=== PATIENT | female | born 1995 | race Caucasian/White ===

== ENCOUNTER 2016-09-06 04:53 | Emergency (ER) | payer BC, OTHER ==
--- NOTE | 2016-09-06 05:07 | PDOC ---
History of Present Illness - General Stated Complaint: BACK PAIN Time Seen by Provider: 09/06/16 05:04 History Source: Patient Exam Limitations: No Limitations - History of Present Illness Initial Comments: 09/06/16 05:15 21-year-old female presents to the emergency department with her boyfriend complaining of mid to lower muscular back pain 2 years. Patient states after getting an epidural 2 years ago for her normal spontaneous vaginal delivery, she's been experiencing 7/10 dull nonradiating intermittent muscular back pains without bladder or bowel dysfunction, extremity numbness or tingling sensation, abdominal pains, chest pain, shortness of breath, flank pains or urinary symptoms. Patient denies any injuries. Pain is alleviated minimally with Motrin and exacerbated with movement.. Occurred: reports: other (x2 years) Past History - Past Medical History Allergies/Adverse Reactions: Allergies Allergy/AdvReac Type Severity Reaction Status Date / Time No Known Allergies Allergy Verified 09/06/16 05:17 Home Medications: Ambulatory Orders NK [No Known Home Medication] 09/06/16 - Psycho/Social/Smoking Cessation Hx Suicidal Ideation: No Smoking History: Never smoked Trauma Specific PMHX - Complaint Specific PMHX Back Injury: No Neck Injury: No Review of Systems - Review of Systems Able to Perform ROS?: Yes Comments:: 09/06/16 05:17 CONSTITUTIONAL: Absent: fever, chills, diaphoresis, generalized weakness, malaise, loss of appetite HEENT: Absent: rhinorrhea, nasal congestion, throat pain, throat swelling, difficulty swallowing, mouth swelling, ear pain, eye pain, visual Changes CARDIOVASCULAR: Absent: chest pain, loss of consciousness, palpitations, irregular heart rate, peripheral edema RESPIRATORY: Absent: cough, shortness of breath, dyspnea with exertion, orthopnea, wheezing, stridor, hemoptysis GASTROINTESTINAL: Absent: abdominal pain, abdominal distension, nausea, vomiting, diarrhea, constipation, melena, hematochezia GENITOURINARY: Absent: dysuria, frequency, urgency, hesitancy, hematuria, flank pain, genital pain MUSCULOSKELETAL: mid/lower left and right sided back pain; neg spinal pain Absent: myalgia, arthralgia, joint swelling SKIN: Absent: rash, itching, pallor HEMATOLOGIC/IMMUNOLOGIC: Absent: easy bleeding, easy bruising, lymphadenopathy, frequent infections ENDOCRINE: Absent: unexplained weight gain, unexplained weight loss, heat intolerance, cold intolerance NEUROLOGIC: Absent: headache, focal weakness or paresthesias, dizziness, unsteady gait, seizure, mental status changes, bladder or bowel incontinence PSYCHIATRIC: Absent: anxiety, depression, suicidal or homicidal ideation, hallucinations. Is the patient limited Sinhala proficient: No *Physical Exam - Physical Exam Comments: 09/06/16 05:17 GENERAL: Well developed, well nourished. Awake and alert. No acute distress. HEENT: Normocephalic, atraumatic. PERRLA, EOMI. No conjunctival pallor. Sclera are non- icteric. Moist mucous membranes. Oropharynx is clear. NECK: Supple. Full ROM. No JVD. Carotid pulses 2+ and symmetric, without bruits. No thyromegaly. No lymphadenopathy. CARDIOVASCULAR: Regular rate and rhythm. No murmurs, rubs, or gallops. Distal pulses are 2+ and symmetric. PULMONARY: No evidence of respiratory distress. Lungs clear to auscultation bilaterally. No wheezing, rales or rhonchi. ABDOMINAL: Soft. Non-tender. Non-distended. No rebound or guarding. No organomegaly. Normoactive bowel sounds. MUSCULOSKELETAL Normal range of motion at all joints. No bony deformities or tenderness. No CVA tenderness. EXTREMITIES: No cyanosis. No clubbing. No edema. No calf tenderness. SKIN: Warm and dry. Normal capillary refill. No rashes. No jaundice. NEUROLOGICAL: Alert, awake, appropriate. Cranial nerves 2-12 intact. No deficits to light touch and temperature in face, upper extremities and lower extremities. No motor deficits in the in face, upper extremities and lower extremities. Normoreflexic in the upper and lower extremities. Normal speech. Toes are down- going bilaterally. Gait is normal without ataxia. PSYCHIATRIC: Cooperative. Good eye contact. Appropriate mood and affect. Toes/heel/tandem walk intact, deep knee bend without difficulties *DC/Admit/Observation/Transfer Diagnosis at time of Disposition: Chronic back pain Qualifiers: Back pain location: thoracic back pain Back pain laterality: bilateral Qualified Code(s): M54.6 - Pain in thoracic spine - Discharge Dispostion Disposition: HOME Condition at time of disposition: Stable Admit: No - Referrals Referrals: STAFF,NOT ON [Primary Care Provider] - South Mayen MD [Staff Physician] - - Patient Instructions Printed Discharge Instructions: DI for Thoracic Back Pain, DI for Low Back Pain Additional Instructions: Follow-up with neurology as listed on your discharge. Take the Flexeril for severe pain Tylenol alternating with Motrin for mild pain Avoid heavy lifting Return back to the emergency department for severe/persistent or worsening discomfort, bladder or bowel dysfunction, extremity numbness or tingling sensation.
[2016-09-06 05:19] VITALS: BP 119/71; PULSE 84; TEMP 97.7; BMI 23.8
--- NOTE | 2016-09-06 05:19 | PDOC ---
[id number]/Observation/Transfer Diagnosis at time of Disposition: Chronic back pain - Discharge Dispostion Disposition: HOME Condition at time of disposition: Stable - Prescriptions Prescriptions: Cyclobenzaprine HCl [Flexeril 10 mg] 10 mg PO BID PRN #20 tablet PRN Reason: Back Pain - Referrals Referrals: South Mayen MD [Staff Physician] - STAFF,NOT ON [Primary Care Provider] - - Patient Instructions Printed Discharge Instructions: DI for Low Back Pain, DI for Thoracic Back Pain Additional Instructions: Follow-up with neurology as listed on your discharge. Take the Flexeril for severe pain Tylenol alternating with Motrin for mild pain Avoid heavy lifting Return back to the emergency department for severe/persistent or worsening discomfort, bladder or bowel dysfunction, extremity numbness or tingling sensation.
[2016-09-06] MEDS ORDERED: CYCLOBENZAPRINE HCL 10 MG TABLET (FP) PO ONE (05:25)
[2016-09-06] MEDS ORDERED: KETOROLAC TROMETHAMINE 60 MG/2 ML VIAL IM ONE (05:25)
[2016-09-06] MEDS ORDERED: KETOROLAC TROMETHAMINE 60 MG/2 ML VIAL ONE (05:33)
[2016-09-06] MEDS ORDERED: CYCLOBENZAPRINE HCL 10 MG TABLET (FP) ONE (05:33)
== END 2016-09-06 06:41 | disposition home or self-care (01) ==
LOC: JER 04:53
PROC: 3E0233Z Introduction of Anti-inflammatory into Muscle, Percutaneous Approach (ICD-10-PCS; principal; 2016-09-06)
DX: M54.6 Pain in thoracic spine (principal); G89.29 Other chronic pain
CPT/HCPCS: 72070-TC; 72100-TC; 84703; 99282-25

== ENCOUNTER 2016-11-27 02:18 | Emergency (ER) | payer OTHER ==
[2016-11-27] MEDS ORDERED: KETOROLAC TROMETHAMINE 60 MG/2 ML VIAL IM ONE (02:37)
--- NOTE | 2016-11-27 02:41 | PDOC ---
History of Present Illness - General History Source: Patient, Old Records Exam Limitations: No Limitations <Deirdre Valdez - Last Filed: 11/27/16 02:37> - General History Source: Patient Exam Limitations: No Limitations - History of Present Illness Initial Comments: 11/27/16 02:43 21 year old female with no PMHx who presents to the ED with low back pain. Patient reports the pain is constant and worsening for a year. She came to the ED a few months ago for the same pain and was given muscle relaxants. She states that she cannot take them because they make her drowsy and she needs to take care of her daughter. She reports taking ibuprofen with no relief. SHe went to a back specialist a few months ago and was told she needed an MRI but her insurance denied it. She denies abdominal pain, nausea, vomiting, diarrhea. She denies urinary complaints. She denies numbness, tingling, weakness. <Luz Maria Rodriguez - Last Filed: 11/27/16 02:43> - General Stated Complaint: LOWER BACK PAIN Time Seen by Provider: 11/27/16 02:28 Past History - Psycho/Social/Smoking Cessation Hx Suicidal Ideation: No Smoking History: Never smoked Hx Alcohol Use: No Drug/Substance Use Hx: No Substance Use Type: None <Lily Valdezfany - Last Filed: 11/27/16 02:37> <Luz Maria Rodriguez - Last Filed: 11/27/16 02:43> - Past Medical History Allergies/Adverse Reactions: Allergies Allergy/AdvReac Type Severity Reaction Status Date / Time No Known Allergies Allergy Verified 09/06/16 05:17 Home Medications: Ambulatory Orders Cyclobenzaprine HCl [Flexeril 10 mg] 10 mg PO BID PRN #20 tablet 09/06/16 Review of Systems - Review of Systems Able to Perform ROS?: Yes Comments:: 11/27/16 02:43 GENERAL/CONSTITUTIONAL: No fever or chills. No weakness. HEAD, EYES, EARS, NOSE AND THROAT: No change in vision. No ear pain or discharge. No sore throat. CARDIOVASCULAR: No chest pain or shortness of breath. RESPIRATORY: No cough, wheezing, or hemoptysis. GASTROINTESTINAL: No nausea, vomiting, diarrhea or constipation. GENITOURINARY: No dysuria, frequency, or change in urination. MUSCULOSKELETAL: (+) low back pain. No joint or muscle swelling or pain. No neck pain. SKIN: No rash NEUROLOGIC: No headache, vertigo, loss of consciousness, or change in strength/ sensation. ENDOCRINE: No increased thirst. No abnormal weight change. HEMATOLOGIC/LYMPHATIC: No anemia, easy bleeding, or history of blood clots. ALLERGIC/IMMUNOLOGIC: No hives or skin allergy. <Luz Maria Rodriguez - Last Filed: 11/27/16 02:43> *Physical Exam - Physical Exam Comments: 11/27/16 02:43 GENERAL: Awake, alert, and fully oriented, in no acute distress HEAD: No signs of trauma EYES: PERRLA, EOMI, sclera anicteric, conjunctiva clear ENT: Auricles normal inspection, hearing grossly normal, nares patent, oropharynx clear without exudates. Moist mucosa NECK: Normal ROM, supple, no lymphadenopathy, JVD, or masses LUNGS: Breath sounds equal, clear to auscultation bilaterally. No wheezes, and no crackles HEART: Regular rate and rhythm, normal S1 and S2, no murmurs, rubs or gallops ABDOMEN: Soft, nontender, normoactive bowel sounds. No guarding, no rebound. No masses BACK: No spinal tenderness, no paraspinal tenderness, no CVA tenderness EXTREMITIES: Normal range of motion, no edema. No clubbing or cyanosis. No cords , erythema, or tenderness NEUROLOGICAL: Cranial nerves II through XII grossly intact. Normal speech, normal gait SKIN: Warm, Dry, normal turgor, no rashes or lesions noted. <Luz Maria Rodriguez - Last Filed: 11/27/16 02:43> Medical Decision Making - Medical Decision Making 11/27/16 02:37 21-year-old female with history of back pain times one year presents the emergency department with the same back pain that she has had for the past year but says that she does not want to take muscle relaxers as it makes her drowsy. Plan: 1. Toradol IM 2. I have advised the patient to follow-up with her back specialist who she saw several months ago 3. Return to the emergency department if symptoms persist, worsen, or new symptoms arise. <Deirdre Valdez - Last Filed: 11/27/16 02:37> *DC/Admit/Observation/Transfer - Discharge Dispostion Admit: No - Attestations Physician Attestion: 11/27/16 02:38 I, Dr. Deirdre Valdez, attest that the scribes documentation that appears above has been prepared under my direction and personally reviewed by me in its entirety. I confirmed that the note above accurately reflects all work, treatment, procedures, and medical decision-making performed by me. <Deirdre Valdez - Last Filed: 11/27/16 02:37> - Attestations Scribe Attestion: 11/27/16 02:43 Documentation prepared by Luz Maria Rodriguez, acting as medical facilities section director for Deirdre Valdez MD. <Luz Maria Rodriguez - Last Filed: 11/27/16 02:43> Diagnosis at time of Disposition: Chronic back pain - Discharge Dispostion Disposition: HOME Condition at time of disposition: Stable - Patient Instructions Printed Discharge Instructions: DI for Low Back Pain Additional Instructions: You may continue to take ibuprofen 800mg every 6-8 hours as needed for pain. Please follow-up with your back specialist as soon as possible. If your muscle relaxer causes you to be excessively drowsy, you may cut the tablet in half and take 1/2 of the dose. Return to the ED if your symptoms persist, worsen or new symptoms arise.
[2016-11-27] MEDS ORDERED: KETOROLAC TROMETHAMINE 60 MG/2 ML VIAL ONE (02:58)
[2016-11-27 03:05] VITALS: BP 110/68; PULSE 68; TEMP 98.7; BMI 22.1
== END 2016-11-27 03:09 | disposition home or self-care (01) ==
LOC: JER 02:18
PROC: 3E0233Z Introduction of Anti-inflammatory into Muscle, Percutaneous Approach (ICD-10-PCS; principal; 2016-11-27)
DX: M54.5 Low back pain (principal); G89.29 Other chronic pain
CPT/HCPCS: 96372; 99281-25

== ENCOUNTER 2016-12-24 14:49 | Emergency (ER) | payer OTHER ==
[2016-12-24 15:04] VITALS: BP 109/69; PULSE 71; TEMP 98; BMI 24.1
--- NOTE | 2016-12-24 17:08 | PDOC ---
History of Present Illness - General Chief Complaint: Injury Stated Complaint: INJURY TO ANKLE Time Seen by Provider: 12/24/16 17:07 History Source: Patient Exam Limitations: No Limitations - History of Present Illness Initial Comments: 12/24/16 17:44 COMING DOWN STAIRS and missed last step causing inversion injury to her left ankle. States it occurred approximately 4 hours ago, has used ice but pain has not subsided. Occurred: reports: just prior to arrival, this afternoon. denies: other Severity: reports: mild Pain Location: reports: lower extremity (LEFT ) Method of Injury: Yes: fall Modifying Factors: improves with: cold therapy Associated Symptoms (Fall): denies symptoms Past History - Travel Traveled outside of the country in the last 30 days: No Close contact w/someone who was outside of country & ill: No - Past Medical History Allergies/Adverse Reactions: Allergies Allergy/AdvReac Type Severity Reaction Status Date / Time No Known Allergies Allergy Verified 12/24/16 15:04 Home Medications: Ambulatory Orders NK [No Known Home Medication] 12/24/16 - Psycho/Social/Smoking Cessation Hx Suicidal Ideation: No Smoking History: Never smoked Have you smoked in the past 12 months: No Number of Cigarettes Smoked Daily: 0 Information on smoking cessation initiated: No Hx Alcohol Use: No Drug/Substance Use Hx: No Substance Use Type: None Trauma Specific PMHX - Complaint Specific PMHX Back Injury: No Neck Injury: No Review of Systems - Review of Systems Able to Perform ROS?: Yes Is the patient limited South Korean proficient: Yes Constitutional: Yes: See HPI. No: Symptoms Reported Respiratory: No: Symptoms reported Musculoskeletal: Yes: Symptoms Reported, See HPI, Joint Pain, Joint Swelling All Other Systems: Reviewed and Negative *Physical Exam - Vital Signs Last Vital Signs Temp Pulse Resp BP Pulse Ox 98 F 71 18 109/69 100 12/24/16 15:02 12/24/16 15:02 12/24/16 15:02 12/24/16 15:02 12/24/16 15:02 - Physical Exam General Appearance: Yes: Nourished, Appropriately Dressed, Mild Distress HEENT: positive: BRAULIO, Normal ENT Inspection, TMs Normal, Pharynx Normal Neck: negative: Tender Musculoskeletal: positive: Normal Inspection Extremity: positive: Normal Capillary Refill, Normal Inspection, Other. negative: Normal Range of Motion (needed range of motion secondary to tenderness to the lateral malleolus and along the lateral aspect of left foot. Has no point tenderness to navicular fifth metatarsal or medial malleolus, negative squeeze test. Neurovascular intact to foot) Integumentary: positive: Pale, Swelling ED Treatment Course - RADIOLOGY Radiology Studies Ordered: Category Date Time Status ANKLE-LEFT [RAD] Stat Radiology 12/24/16 17:08 Ordered Progress Note - Progress Note Progress Note: Negative for fractures or dislocations, will treat for sprain with Manohar, Aircast and crutches. *DC/Admit/Observation/Transfer Diagnosis at time of Disposition: Left ankle sprain Qualifiers: Encounter type: initial encounter Involved ligament of ankle: unspecified ligament Qualified Code(s): S93.402A - Sprain of unspecified ligament of left ankle, initial encounter - Discharge Dispostion Disposition: HOME Condition at time of disposition: Stable Admit: No - Referrals Referrals: STAFF,NOT ON [Primary Care Provider] - South White MD [Staff Physician] - - Patient Instructions Printed Discharge Instructions: DI for Ankle Sprain Additional Instructions: Rest, ice to area on and off for 15 minutes 4-6 times a day Avoid heavy lifting or exercise until pain and swelling is resolved or until further directed Keep area highly elevated to reduce swelling Use splints/Manohar wrap as directed Followup with orthopedist in one to 2 days if not improving, if significantly improved may wait one week for followup with orthopedist May use ibuprofen 2-200 mg tablets every 6 hours as needed for pain
== END 2016-12-24 17:52 | disposition home or self-care (01) ==
LOC: JERFT 14:49
DX: S93.402A Sprain of unspecified ligament of left ankle, initial encounter (principal); W10.8XXA Fall (on) (from) other stairs and steps, initial encounter; Y93.89 Activity, other specified; Y92.89 Other specified places as the place of occurrence of the external cause
CPT/HCPCS: 73610-TC-LT; 99282-25

== ENCOUNTER 2017-08-02 07:51 | Day surgery (SDC) | payer OTHER ==
[2017-07-31 17:23] VITALS: BMI 24.5
--- NOTE | 2017-08-02 09:56 | HP ---
History & Physical Update - History History: No Change - Physical Physical: No Change - Assessment Assessment: No Change - Plan Plan: No Change (Consented for laparascopic cholecystectomy, possible open.)
[2017-08-02] MEDS ORDERED: ceFAZolin SODIUM 1 GM VIAL IVPB ONE (10:20)
[2017-08-02] MEDS ORDERED: BUPIVACAINE HCL/PF 0.5% (5MG/ML) 10 ML VIAL IJ ONE ×2 (11:16)
--- NOTE | 2017-08-02 11:38 | OP ---
Operative Note - Note: Operative Date: 08/02/17 Pre-Operative Diagnosis: Cholelithisis with chronic cholecystitis. Operation: Laparoscopic cholecystectomy , primary repair of umbilical hernia. Findings: Cholelithiasis , cholecystitis, umbilical hernia. Post-Operative Diagnosis: Other (Cholelithiasis, umbilical hernia.) Surgeon: Pina Fields Heavy Duty Custodian: Gia Shipman Anesthesia: General Specimens Removed: Gallbladder Estimated Blood Loss (mls): 5 Operative Report Dictated: Yes
[2017-08-02] MEDS ORDERED: ONDANSETRON 4 MG/2 ML VIAL IVPUSH PRN (12:31)
[2017-08-02] MEDS ORDERED: oxyCODONE HCL 5 MG TABLET PO PRN (12:31)
--- NOTE | 2017-08-02 12:39 | SURG ---
Surgery Information Consultant Note Information Consultant: Gia Shipman PA-C Date of Service: 08/02/17 Diagnosis: cholecystitis, cholelithiasis, umbilical hernia Procedure: laparoscopic cholecystectomy with primary repair of umbilical hernia I was present for the entirety of the operative procedure. For further detail, please refer to operative report. Visit type - Case Type Case Type: Scheduled Admission - Emergency Emergency Visit: No - New patient This patient is new to me today: Yes Date on this admission: 08/02/17
[2017-08-02] MEDS ORDERED: LACTATED RINGERS SOLUTION 1,000 ML IV SCH (12:45)
--- NOTE | 2017-08-02 12:56 | OP ---
DATE OF OPERATION: 08/02/2017 PREOPERATIVE DIAGNOSIS: Cholelithiasis with chronic cholecystitis. POSTOPERATIVE DIAGNOSES: 1. Cholelithiasis with chronic cholecystitis. 2. Umbilical hernia. OPERATIVE PROCEDURE: 1. Laparoscopic cholecystectomy. 2. Primary repair of umbilical hernia. SURGEON: Eran Fields MD BRICK CHIMNEY BUILDER: HELEN Benjamin ANESTHESIA: General anesthesia. OPERATIVE DESCRIPTION: This 22-year-old woman was referred by Dr. Lino for abdominal pain. She was found to have a large stone in the gallbladder with chronic cholecystitis. Patient was brought in for a laparoscopic cholecystectomy. Consent was obtained. Risks, benefits and complications were discussed with the patient. General anesthesia was administered. The abdomen painted and draped. Timeout was called. An incision was made in the infraumbilical portion of the umbilicus. This was deepened down through the skin and subcutaneous tissue. Umbilical hernial defect was identified. This was then used to enter the abdominal cavity. The skin over the umbilical defect was raised above the defect, thus exposing the margins of the defect. This was then carefully stretched and the peritoneum was incised. Two stay sutures of 2-0 Vicryl were obtained on either side and a 10-mm laparoscopic trocar of the Mary type was introduced in the abdominal cavity through this defect. The abdomen was inflated with carbon dioxide at 6 L per minute with a maximum intraabdominal pressure of 15 mmHg. A 5-mm camera was then introduced through this port into the abdominal cavity. Two stay sutures of 2-0 Vicryl were obtained to anchor the 10-mm trocar to the abdominal wall. There were no lesions within the abdominal cavity. Under direct vision two 5-mm trocars were introduced through a small skin incision in the right upper quadrant of the abdomen. One was placed along the anterior axillary line 2 to 3 fingerbreadths below the costal margin. Another 5-mm trocar was inserted medial to it along the midclavicular line. Both these trocars were noted entering the abdominal cavity under direct vision with the camera. A third 5-mm trocar was then introduced in the midline in the subxiphoid area. A small skin incision was made in this location and the 5-mm trocar was introduced into the abdominal cavity to the right of the falciform ligament. All these trocars were noted entering the abdomen with the camera in the umbilical port. The gallbladder was then identified and a grasper was introduced through the lateral 5-mm port into the abdominal cavity. This grasper grasped the fundus of the gallbladder and retracted it cephalad and laterally. This exposed the infundibulum of the gallbladder. The infundibulum of the gallbladder was then grasped with another grasper through the medial 5-mm port. The infundibulum was then retracted inferiorly and laterally, thus exposing the cystic duct and the Calot triangle. With an Endoshears introduced through the subxiphoid port, the peritoneal reflection around the cystic duct and infundibulum was incised circumferentially. With sharp and blunt dissection the cystic duct was isolated circumferentially. The cystic artery was also brought into view. Once the cystic duct and cystic artery were isolated circumferentially, these were divided between Endoclips. These 5-mm Endoclips were introduced through the subxiphoid port. The cystic duct and cystic artery were then divided between clips. The peritoneal reflection on either side of the cystic duct was then incised for 2 to 3 mm from the liver edge using electrocautery as well as sharp and blunt dissection with the endoscissors. Gallbladder was then dissected all the way to the fundus of the gallbladder. Hemostasis was achieved using electrocautery. The dissection was clear and clean and the cholecystectomy was thus accomplished. The camera was then switched to the subxiphoid port. An EndoCatch was then introduced through the umbilical port. The gallbladder was placed in the EndoCatch and retrieved out of the abdominal cavity. There was a large stone within the gallbladder. The gallbladder fossa was then irrigated with normal saline through the subxiphoid port, the camera being switched back to the umbilical port. All fluid at this time was clear. There was no bleeding. The instruments were then withdrawn under direct vision. The umbilical defect was then approximated with interrupted and [id number] 2-0 Vicryl sutures. The umbilical hernia was thus repaired. Marcaine 0.5% was then injected into the wound. The skin was then approximated with buried interrupted 4-0 Biosyn sutures. Estimated blood loss was less than 5 mL. Sponge count and instrument count were correct. Dermabond was applied across the skin edges. Patient tolerated the procedure well, was extubated and sent to the recovery room in satisfactory and stable condition. Kassandra [id number] cc: Cathy Lino MD
[2017-08-02 13:51] VITALS: TEMP 99.3
[2017-08-02] MEDS ORDERED: oxyCODONE HCL 5 MG TABLET ONE (14:04)
[2017-08-02 15:53] VITALS: BP 114/63; PULSE 90
--- NOTE | 2017-08-06 14:40 | PATH ---
Surgical Pathology Report Patient Name: MARTIR MANZANARES [facility]. Rec. #: [id number] /Age/Gender: 1995 (Age: 22) / F Account: [id number] Location: [facility] SURGICAL Taken: 08/02/2017 Received: 08/02/2017 Reported: 08/06/2017 Physicians: Eran Fields M.D. Specimen(s) Received GALLBLADDER Clinical History Cholecystitis, cholelithiasis Final Diagnosis GALLBLADDER, LAPAROSCOPIC CHOLECYSTECTOMY: CHRONIC CHOLECYSTITIS AND CHOLELITHIASIS. Electronically Signed Marilin Sifuentes M.D. Gross Description Received in formalin, labeled "gallbladder," is a 7.0 x 2.3 x 2.0 cm. gallbladder with a 0.2 cm. in length portion of cystic duct attached. The outer surface is leung-lopez with a focal defect and varies from smooth to shaggy. The lumen contains green, tenacious bile as well as 2 yellow, bosselated choleliths averaging 1.5 cm in greatest dimension. The mucosa is green and velvety. The wall of the gallbladder averages 0.2 cm. in thickness. Retail Buyer sections are submitted in one cassette. 08/02/201708/02/2017
== END 2017-08-02 16:02 | disposition home or self-care (01) ==
LOC: JASU-SURG 07:51
PROVIDERS: ATTEND Specialist
PROC: 0FT44ZZ Resection of Gallbladder, Percutaneous Endoscopic Approach (ICD-10-PCS; 2017-08-02)
PROC: 0WQF0ZZ Repair Abdominal Wall, Open Approach (ICD-10-PCS; principal; 2017-08-02 11:00)
DX: K80.10 Calculus of gallbladder with chronic cholecystitis without obstruction (principal); K42.9 Umbilical hernia without obstruction or gangrene
CPT/HCPCS: 84703; 88304-TC; 94760

== ENCOUNTER 2019-02-13 18:49 | Emergency (ER) | payer OTHER ==
[2019-02-13 19:03] VITALS: BMI 25.7
--- NOTE | 2019-02-13 19:04 | PDOC ---
Rapid Medical Evaluation Chief Complaint: Lightheaded Time Seen by Provider: 02/13/19 19:03 Medical Evaluation: Allergies Allergy/AdvReac Type Severity Reaction Status Date / Time No Known Allergies Allergy Verified 02/13/19 19:03 Vital Signs Temp Pulse Resp BP Pulse Ox 98.7 F 79 16 127/68 99 02/13/19 18:59 10 18:59 02/13/19 18:59 02/13/19 18:59 02/13/19 18:59 02/13/19 19:03 I have performed a brief in-person evaluation of this patient. The patient presents with a chief complaint of: 4 days of bodyaches, lightheadedness, generalized malaise with one day of runny nose, stuffy nose, sore throat, fever The patient will proceed to the ED for further evaluation. Discharge Disposition - Diagnosis Viral syndrome - Referrals - Patient Instructions - Post Discharge Activity
--- NOTE | 2019-02-13 19:58 | PDOC ---
History of Present Illness - General Chief Complaint: Lightheaded Stated Complaint: SICK Time Seen by Provider: 02/13/19 19:03 Past History - Past Medical History Allergies/Adverse Reactions: Allergies Allergy/AdvReac Type Severity Reaction Status Date / Time No Known Allergies Allergy Verified 02/13/19 19:03 Home Medications: Ambulatory Orders Levonorgestrel-Ethin Estradiol [Lutera-28 Tablet] 1 each PO DAILY 07/31/17 Oxycodone HCl/Acetaminophen [Percocet 5-325 mg Tablet -] 1 tab PO Q6H PRN #20 tablet MDD 3 08/02/17 Anemia: No Asthma: No Cancer: No Cardiac Disorders: No CVA: No COPD: No CHF: No Dementia: No Diabetes: No GI Disorders: No Disorders: No HTN: No Hypercholesterolemia: No Liver Disease: No Seizures: No Thyroid Disease: No - Psycho Social/Smoking Cessation Hx Smoking History: Never smoked Have you smoked in the past 12 months: No Number of Cigarettes Smoked Daily: 0 Hx Alcohol Use: No Drug/Substance Use Hx: No Substance Use Type: None Hx Substance Use Treatment: No *Physical Exam - Vital Signs Last Vital Signs Temp Pulse Resp BP Pulse Ox 98.7 F 79 16 127/68 99 02/13/19 18:59 02/13/19 18:59 02/13/19 18:59 02/13/19 18:59 02/13/19 18:59 ED Treatment Course - LABORATORY CBC & Chemistry Diagram: 02/13/19 20:27 02/13/19 20:27 Discharge - Discharge Information Problems reviewed: Yes Clinical Impression/Diagnosis: Viral syndrome, Influenza B Condition: Stable Disposition: HOME - Admission No - Follow up/Referral Referrals: Alden Lino [Primary Care Provider] - - Patient Discharge Instructions Patient Printed Discharge Instructions: DI for Viral Syndrome Additional Instructions: You were seen in the ER for complaints of runny nose, body aches and fever. Your labwork was unremarkable. You should follow up with your Family Doctor. Take Motrin and Tylenol for pain and fever relief. Drink plenty of fluids. Return to the ED if you have worsening symptoms, nausea, vomiting or fever. - Post Discharge Activity
[2019-02-13] MEDS ORDERED: SODIUM CHLORIDE 1,000 ML IV SCH (20:00)
[2019-02-13 20:50] LABS: BASO % 0.7 % (0-2.0); EOS % 2.4 % (0-4.5); HEMATOCRIT 45.2 % (32.4-45.2); HEMOGLOBIN 15.1 GM/dL (10.7-15.3); LYMPH % 24.2 % (8-40); MCH 29.5 pg (25.7-33.7); MCHC 33.5 g/dl (32.0-36.0); MEAN CELL VOLUME 87.9 fl (80-96); MEAN PLT VOLUME 8.9 fl (7.5-11.1); MONO % 11.9 % (3.8-10.2); NEUT % 60.8 % (42.8-82.8); PLATELET COUNT 223 K/MM3 (134-434); RBC 5.14 M/mm3 (3.60-5.2); URINE APPEARANCE CLEAR; URINE BILIRUBIN NEGATIVE (NEGATIVE); URINE COLOR YELLOW; URINE GLUCOSE (UA) NEGATIVE (NEGATIVE); URINE KETONE NEGATIVE (NEGATIVE); URINE LEUK ESTERASE NEGATIVE (NEGATIVE); URINE NITRITE NEGATIVE (NEGATIVE); URINE PROTEIN NEGATIVE (NEGATIVE); WHITE BLOOD COUNT 5.9 K/mm3 (4.0-10.0)
--- NOTE | 2019-02-13 20:56 | PDOC ---
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 She has no PMHx. Pt has no other complaints. - Physicial Exam PE: 02/13/19 21:58 Normal exam. Pt is afebrile here. She has been taking motrin at home Last dose of motrin was Pt has not been eating well. She is not dehydrated appearing and HR is NSR Lungs clear Abd soft NT ND Neuro exam is normal - Medical Decision Making 02/13/19 23:50 Labs normal; Flu B is positive; pt will not be treated with tamiflu, as it has been going on for 4 days. Pt adivsed to take precautions when she is around family/friends/children/ elderly
[2019-02-13 21:17] LABS: ALBUMIN 4.1 g/dl (3.4-5.0); BILIRUBIN,TOTAL 0.2 mg/dL (0.2-1); BLOOD UREA NITROGEN 10.1 mg/dL (7-18); CALCIUM 9.2 mg/dL (8.5-10.1); CREATININE 0.9 mg/dL (0.55-1.3); POTASSIUM 4.2 mmol/L (3.5-5.1); TOT PROT 8.1 g/dl (6.4-8.2)
[2019-02-13 22:48] VITALS: BP 120/65; PULSE 75; TEMP 98.1
== END 2019-02-13 22:46 | disposition home or self-care (01) ==
LOC: JERFT 18:49
DX: J10.1 Influenza due to other identified influenza virus with other respiratory manifestations (principal); B34.9 Viral infection, unspecified
CPT/HCPCS: 36415; 80053; 81003; 84703; 85025; 87086; 87804; 99283-25; J7030

== ENCOUNTER 2019-12-20 17:32 | Emergency (ER) | payer OTHER ==
[2019-12-20 17:40] VITALS: TEMP 98.4; BMI 25.4
[2019-12-20 18:31] LABS: EPI CELLS 15 /uL (0-25.1); HYALINE CASTS 2 /uL (0-3.1); PH,URINE 5.5 (5.0-8.0); URINE APPEARANCE CLEAR; URINE BACTERIA 555 /uL (0-1359); URINE BILIRUBIN NEGATIVE (NEGATIVE); URINE COLOR YELLOW; URINE GLUCOSE (UA) NEGATIVE (NEGATIVE); URINE KETONE NEGATIVE (NEGATIVE); URINE LEUK ESTERASE 1+ (NEGATIVE); URINE NITRITE NEGATIVE (NEGATIVE); URINE PROTEIN NEGATIVE (NEGATIVE); URINE RBC 10 /uL (0-23.9); URINE WBC 39 /uL (0-25.8)
--- NOTE | 2019-12-20 18:34 | PDOC ---
History of Present Illness - General History Source: Patient Exam Limitations: No Limitations - History of Present Illness Initial Comments: 12/20/19 18:26 Patient is a 24-year-old female, LMP 10/13 who is 9 weeks complaining of pain to her right side last night. States the pain was sharp but as the night progressed to resolved and currently has no pain. She denies any vaginal bleeding pr any abnormal vaginal discharge. She has had OB care but no OB sono. She is here to check to see if everything is okay. Contrary to triage patient has no lightheadedness. She states that she gets nauseous all day and is a little bit lightheaded but has no symptoms currently. Denies denies fever, chills, dysuria. PMD: does not remember name OBS: Abrahamangela diamond PMHX: as above PSHX: hernia repair, cholecystectomy ALL: NKDA GENERAL/CONSTITUTIONAL: [No fever or chills. No weakness. No weight change.] HEAD, EYES, EARS, NOSE AND THROAT: [No change in vision. No ear pain or discharge. No sore throat.] CARDIOVASCULAR: [No chest pain or shortness of breath.] RESPIRATORY: [No cough, wheezing, or hemoptysis.] GASTROINTESTINAL: [No nausea, vomiting, diarrhea or constipation. No rectal bleeding.] GENITOURINARY: [No dysuria, frequency, or change in urination.] MUSCULOSKELETAL: [No joint or muscle swelling or pain. No neck or back pain.] SKIN AND BREASTS: [No rash or easy bruising.] NEUROLOGIC: [No headache, vertigo, loss of consciousness, or loss of sensation.] PSYCHIATRIC: [No depression or anxiety.] ENDOCRINE: [No increased thirst. No abnormal weight change.] HEMATOLOGIC/LYMPHATIC: [No anemia, easy bleeding, or history of blood clots.] ALLERGIC/IMMUNOLOGIC: [No hives or skin allergy. No latex allergy.] GENERAL: [The patient is awake, alert, and fully oriented, in no acute distress.] HEAD: [Normal with no signs of trauma.] EYES: [Pupils equal, round and reactive to light, extraocular movements intact, sclera anicteric, conjunctiva clear.] ENT: [Ears normal, nares patent, oropharynx clear without exudates. Moist mucous membranes.] NECK: [Normal range of motion, supple without lymphadenopathy, JVD, or masses.] LUNGS: [Breath sounds equal, clear to auscultation bilaterally. No wheezes, and no crackles.] HEART: [Regular rate and rhythm, normal S1 and S2 without murmur, rub.] ABDOMEN: [Soft, nontender, normoactive bowel sounds. No guarding, no rebound. No masses.] EXTREMITIES: [Normal range of motion, no edema. No clubbing or cyanosis. No cords, erythema, or tenderness.] NEUROLOGICAL: [Cranial nerves II through XII grossly intact. Normal speech, normal gait.] PSYCH: [Normal mood, normal affect.] SKIN: [Warm, Dry, normal turgor, no rashes or lesions noted.] <Lesly Cohen - Last Filed: 12/20/19 20:41> <Jerry Hayes - Last Filed: 12/20/19 23:16> - General Chief Complaint: Lightheaded Stated Complaint: 8WKS//DIZZINESS/NAUSEA Past History - Medical History Anemia: No Asthma: No Cancer: No Cardiac Disorders: No CVA: No COPD: No CHF: No Dementia: No Diabetes: No GI Disorders: No Disorders: No HTN: No Hypercholesterolemia: No Liver Disease: No Seizures: No Thyroid Disease: No - Surgical History Abdominal Surgery: Yes (hernia repair) Cholecystectomy: Yes - Reproductive History Is Patient Now?: Yes - Psycho-Social/Smoking History Smoking History: Never smoked Have you smoked in the past 12 months: No Number of Cigarettes Smoked Daily: 0 - Substance Abuse Hx (Audit-C & DAST Scrn) How often the patient has a drink containing alcohol: Never Score: In Men: 4 or > Positive; In Women: 3 or > Positive: 0 Screen Result (Pos requires Nsg. Audit-10AR): Negative <Lesly Cohen - Last Filed: 12/20/19 20:41> <Jerry Hayes - Last Filed: 12/20/19 23:16> - Medical History Allergies/Adverse Reactions: Allergies Allergy/AdvReac Type Severity Reaction Status Date / Time No Known Allergies Allergy Verified 12/20/19 17:40 Home Medications: Ambulatory Orders Levonorgestrel-Ethin Estradiol [Lutera-28 Tablet] 1 each PO DAILY 07/31/17 Oxycodone HCl/Acetaminophen [Percocet 5-325 mg Tablet -] 1 tab PO Q6H PRN #20 tablet MDD 3 08/02/17 Cephalexin [Keflex] 500 mg PO BID #10 capsule 12/20/19 *Physical Exam - Vital Signs Last Vital Signs Temp Pulse Resp BP Pulse Ox 98.4 F 80 18 113/69 98 12/20/19 17:36 12/20/19 17:36 12/20/19 17:36 12/20/19 17:36 12/20/19 17:36 <Lesly Cohen - Last Filed: 12/20/19 20:41> - Vital Signs Last Vital Signs Temp Pulse Resp BP Pulse Ox 98.4 F 72 16 111/70 100 12/20/19 17:36 12/20/19 20:30 12/20/19 20:30 12/20/19 20:30 12/20/19 20:30 <Jerry Hayes - Last Filed: 12/20/19 23:16> ED Treatment Course - ADDITIONAL ORDERS Additional order review: Laboratory Results 12/20/19 12/20/19 18:04 18:04 Urine Color Yellow Urine Appearance Clear Urine pH 5.5 Ur Specific [place] 1.032 Urine Protein Negative Urine Glucose (UA) Negative Urine Ketones Negative Urine Blood Negative Urine Nitrite Negative Urine Bilirubin Negative Urine Urobilinogen 1.0 Ur Leukocyte Esterase 1+ H Urine WBC (Auto) 39 Urine RBC (Auto) 10 Urine Casts (Auto) 2 U Epithel Cells (Auto) 15 Urine Bacteria (Auto) 555 Urine HCG, Qual Positive - Medications Given in the ED: ED Medications Discontinued Medications Generic Name Dose Route Start Last Admin Trade Name Freq PRN Reason Stop Dose Admin Cephalexin HCl 500 mg 12/20/19 20:33 12/20/19 20:42 Keflex - PO 12/20/19 20:34 500 mg ONCE ONE Administration <Jerry Hayes - Last Filed: 12/20/19 23:16> Medical Decision Making - Medical Decision Making 12/20/19 18:26 Patient is a 24-year-old female, LMP 6/17 who is 9 weeks complaining of pain to her right side last night. States the pain was sharp but as the night progressed to resolved and currently has no pain. She denies any vaginal bleeding pr any abnormal vaginal discharge. She has had OB care but no OB sono. She is here to check to see if everything is okay. Contrary to triage patient has no lightheadedness. She states that she gets nauseous all day and is a little bit lightheaded but has no symptoms currently. Denies denies fever, chills, dysuria. Bedside US done (+) IUP, FH 166 will send UA 12/20/19 20:23 Patient Full Name: GLENNA MCMAHAN Patient Accession No: [id number] Patient : 1995 Reason for Exam: r/o ectopic Referring Physician: Patient Name: MARTIR MANZANARES THIS IS A PRELIMINARY REPORT FROM IMAGING SPEECH/LANGUAGE THERAPIST DATE OF SERVICE: 2019-12-20 18:50:12 IMAGES: 28 EXAM: US OB less than 14 weeks HISTORY: Evaluate for ectopic . TECHNIQUE: Real-time imaging of the was performed with both transabdominal and transvaginal technique. Less than 14 weeks . COMPARISON: None available. FINDINGS: A single live intrauterine gestation is present, with gestational sac, pole, and yolk sac visible. There is positive cardiac activity at a rate of 166 bpm. No evidence of adnexal mass or free fluid. THIS DOCUMENT HAS BEEN ELECTRONICALLY SIGNED Az Lubin MD 12/20/2019 20:05 LÓPEZ Silva. Please call Imaging Budget Technician [phone] ([phone]) with questions. INTERPRETING RADIOLOGIST: Az Lubin MD Electronically Signed: Dec 20, 2019 08:05PM EDT 12/20/19 20:37 Results of the ultrasound was discussed with the patient. She has had no symptoms of abdominal pain dizziness since being in the emergency room. She is agreeable to discharge. I discussed the physical exam findings, ancillary test results and final diagnoses with the patient. I answered all of the patient's questions. The patient was satisfied with the care received and felt comfortable with the discharge plan and treatment plan. The Patient agrees to follow up with the primary care physician within 24-72 hours. <Lesly Cohen - Last Filed: 12/20/19 20:41> Discharge - Discharge Information Problems reviewed: Yes <Lesly Cohen - Last Filed: 08/23/20 20:41> <Jerry Hayes - Last Filed: 12/20/19 23:16> - Discharge Information Clinical Impression/Diagnosis: Abdominal pain affecting UTI (urinary tract infection) during Qualifiers: Trimester: first trimester Qualified Code(s): O23.41 - Unspecified infection of urinary tract in , first trimester Condition: Stable Disposition: HOME - Additional Discharge Information Prescriptions: Cephalexin [Keflex] 500 mg PO BID #10 capsule - Patient Discharge Instructions Patient Printed Discharge Instructions: DI for Urinary Tract Infection (UTI), DI for Abdominal Pain -- Early Additional Instructions: Your Discharge Instructions: You must call primary care physician within 24 hours to arrange follow-up. Return to the Emergency Department with any new, persistent or worsening symptoms, for fever, chills, SOB, dizziness or any other concerning changes that may occur. You must follow-up with your OB in 1 to 2 days.
[2019-12-20] MEDS ORDERED: CEPHALEXIN MONOHYDRATE 500 MG CAPSULE (UD) PO ONE (20:33)
[2019-12-20] MEDS ORDERED: CEPHALEXIN MONOHYDRATE 500 MG CAPSULE (UD) ONE (20:37)
[2019-12-20 20:48] VITALS: BP 111/70; PULSE 72
== END 2019-12-20 20:45 | disposition home or self-care (01) ==
LOC: JER 17:32
DX: O23.41 Unspecified infection of urinary tract in pregnancy, first trimester (principal)
CPT/HCPCS: 76801-TC; 81003; 84703; 87086; 99284-25

== ENCOUNTER 2020-07-11 12:20 | Inpatient (IN) | payer OTHER ==
[2020-07-11] MEDS ORDERED: SODIUM CHLORIDE 100 ML IVPB ONE ×2 (13:22→16:45)
[2020-07-11] MEDS ORDERED: AMPICILLIN SODIUM 2 GM VIAL ONE (13:22)
[2020-07-11] MEDS: ELECTROLYTE-148 SOLN 1,000 ML IV SCH ×3 (13:30→19:45)
[2020-07-11 13:44] LABS: BASO % 1.1 % (0-2.0); EOS % 0.8 % (0-4.5); HEMATOCRIT 41.4 % (32.4-45.2); HEMOGLOBIN 13.7 GM/dL (10.7-15.3); LYMPH % 14.3 % (8-40); MCH 28.7 pg (25.7-33.7); MCHC 33.1 g/dl (32.0-36.0); MEAN CELL VOLUME 86.5 fl (80-96); MEAN PLT VOLUME 10.8 fl (7.5-11.1); MONO % 5.6 % (3.8-10.2); NEUT % 78.2 % (42.8-82.8); PLATELET COUNT 241 K/MM3 (134-434); RBC 4.79 M/mm3 (3.60-5.2); RDW 13.7 % (11.6-15.6); WHITE BLOOD COUNT 11.6 K/mm3 (4.0-10.0)
[2020-07-11 13:58] LABS: INR 0.93 (0.83-1.09); PROTHROMBIN TIME (PATIENT) 11.5 SEC (9.7-13.0)
[2020-07-11] MEDS ORDERED: PCA PUMP NR ONE (13:59)
[2020-07-11] MEDS ORDERED: FENTANYL/BUPIVACAINE/NS/PF - PCEA - 50 ML DISP.SYRIN EP ONE ×2 (13:59→18:20)
[2020-07-11 14:00] LABS: ACTIVATED PTT 28.3 SECONDS (25.2-36.5)
[2020-07-11] MEDS ORDERED: BUPIVACAINE HCL/PF 0.25% (2.5MG/ML) 10 ML VIAL ONE ×2 (14:00→19:20)
[2020-07-11] MEDS ORDERED: AMPICILLIN - 2 GM in SODIUM CHLORIDE 100 ML IVPB ONE (14:09)
[2020-07-11 14:12] LABS: POTASSIUM 4.2 mmol/L (3.5-5.1)
[2020-07-11 14:13] LABS: CALCIUM 9.4 mg/dL (8.5-10.1)
[2020-07-11 14:14] LABS: BLOOD UREA NITROGEN 11.3 mg/dL (7-18)
[2020-07-11] MEDS: FENTANYL/BUPIVACAINE/NS/PF - PCEA - 50 ML DISP.SYRIN EP SCH ×2 (14:15→18:26)
[2020-07-11 14:17] LABS: CREATININE 0.7 mg/dL (0.55-1.3)
[2020-07-11 15:07] VITALS: BMI 28.3
[2020-07-11] MEDS ORDERED: NALOXONE HCL 0.4 MG/ML VIAL IVPUSH PRN (16:11)
[2020-07-11] MEDS ORDERED: OXYTOCIN 30 UNITS in 0.9% NS 30 UNIT/500 ML INFUS.BAG IVPB ONE (16:14)
[2020-07-11] MEDS ORDERED: AMPICILLIN SODIUM 1 GM VIAL ONE ×2 (16:45→20:45)
[2020-07-11] MEDS: AMPICILLIN - 1 GM in SODIUM CHLORIDE 100 ML IVPB SCH ×2 (17:00→21:00)
[2020-07-11] MEDS ORDERED: OXYTOCIN 30 UNITS in 0.9% NS 30 UNIT/500 ML INFUS.BAG IVPB SCH (17:45)
[2020-07-11] MEDS ORDERED: AMPICILLIN - 1 GM in SODIUM CHLORIDE 100 ML IVPB SCH (18:10)
[2020-07-11] MEDS ORDERED: LIDOCAINE HCL 1% PRESERVATIVE FREE - 30ML VIAL ONE (19:13)
[2020-07-11] MEDS ORDERED: OXYTOCIN 20 UNITS in 0.9% NS 20 UNIT/1,000 ML INFUS.BAG IV ONE (19:13)
[2020-07-11] MEDS: OXYTOCIN 20 UNITS in 0.9% NS 20 UNIT/1,000 ML INFUS.BAG IV SCH (21:50)
[2020-07-11] MEDS ORDERED: BENZOCAINE 20% 57 GM BOTTLE TP PRN (21:59)
[2020-07-11] MEDS ORDERED: BISACODYL 10 MG SUPP.RECT RC PRN (21:59)
[2020-07-11] MEDS ORDERED: WITCH HAZEL 50% (TUCKS) 40 PAD/JAR PAD TP PRN (21:59)
[2020-07-11] MEDS ORDERED: BENZOCAINE 28 GM HEMORRHOIDAL OINTMENT TP PRN (21:59)
[2020-07-12] MEDS: AMPICILLIN - 1 GM in SODIUM CHLORIDE 100 ML IVPB SCH (02:37)
[2020-07-12 08:04] LABS: BASO % 0.4 % (0-2.0); EOS % 0.6 % (0-4.5); HEMATOCRIT 34.8 % (32.4-45.2); HEMOGLOBIN 11.8 GM/dL (10.7-15.3); LYMPH % 13.6 % (8-40); MCH 28.9 pg (25.7-33.7); MCHC 33.8 g/dl (32.0-36.0); MEAN CELL VOLUME 85.6 fl (80-96); MEAN PLT VOLUME 10.2 fl (7.5-11.1); MONO % 5.1 % (3.8-10.2); NEUT % 80.3 % (42.8-82.8); PLATELET COUNT 169 K/MM3 (134-434); RBC 4.07 M/mm3 (3.60-5.2); RDW 13.5 % (11.6-15.6); WHITE BLOOD COUNT 13.4 K/mm3 (4.0-10.0)
[2020-07-12] MEDS: IBUPROFEN 600 MG TABLET (FP) PO PRN ×3 (08:48→22:00)
[2020-07-12] MEDS: ACETAMINOPHEN 325 MG TABLET (FP) PO PRN ×3 (08:50→22:01)
[2020-07-12] MEDS: ELECTROLYTE-148 SOLN 1,000 ML IV SCH (13:00)
[2020-07-12] MEDS: FENTANYL/BUPIVACAINE/NS/PF - PCEA - 50 ML DISP.SYRIN EP SCH (19:34)
[2020-07-12] MEDS ORDERED: SENNOSIDES/DOCUSATE COMBO (SENNA PLUS) TABLET (UD) PO PRN (22:00)
[2020-07-12] MEDS: OXYTOCIN 20 UNITS in 0.9% NS 20 UNIT/1,000 ML INFUS.BAG IV SCH (22:00)
[2020-07-13] MEDS: IBUPROFEN 600 MG TABLET (FP) PO PRN (08:09)
[2020-07-13] MEDS: ACETAMINOPHEN 325 MG TABLET (FP) PO PRN (08:10)
[2020-07-13 09:10] VITALS: BP 131/88; PULSE 70; TEMP 98.3
== END 2020-07-13 10:55 | disposition home or self-care (01) | DRG 560 ==
LOC: JDEL 12:20 → JLDR 12:35 → J3W 23:15
PROVIDERS: ADMIT Student in an Organized Health Care Education/Training Program; ATTEND Student in an Organized Health Care Education/Training Program
PROC: 10E0XZZ Delivery of Products of Conception, External Approach (ICD-10-PCS; principal; 2020-07-11)
DX: O80 Encounter for full-term uncomplicated delivery (principal); Z3A.38 38 weeks gestation of pregnancy; Z37.0 Single live birth
CPT/HCPCS: 36415; 59409; 80048; 85025; 85610; 85730; 86780; 86850; 86900; 86901; C9803; U0003

== ENCOUNTER 2020-10-11 23:10 | Emergency (ER) | payer OTHER ==
[2020-10-11 23:22] VITALS: BP 170/70; PULSE 76; TEMP 97.9; BMI 25.6
[2020-10-12] MEDS ORDERED: ACETAMINOPHEN 325 MG TABLET (FP) PO ONE (02:45)
[2020-10-12] MEDS ORDERED: ACETAMINOPHEN 325 MG TABLET (FP) ONE ×2 (02:47→02:51)
[2020-10-12] MEDS ORDERED: KETOROLAC TROMETHAMINE 30 MG/1 ML VIAL IM ONE (03:25)
[2020-10-12] MEDS ORDERED: KETOROLAC TROMETHAMINE 30 MG/1 ML VIAL ONE (04:52)
== END 2020-10-12 05:35 | disposition home or self-care (01) ==
LOC: JER 23:10
PROC: 3E0233Z Introduction of Anti-inflammatory into Muscle, Percutaneous Approach (ICD-10-PCS; principal; 2020-10-11)
DX: S46.812A Strain of other muscles, fascia and tendons at shoulder and upper arm level, left arm, initial encounter (principal)
CPT/HCPCS: 72125-TC; 84703; 99284-25

== ENCOUNTER 2021-04-04 17:52 | Emergency (ER) | payer OTHER ==
[2021-04-04 18:35] VITALS: BMI 23.8
[2021-04-04] MEDS ORDERED: IBUPROFEN 600 MG TABLET (FP) PO ONE ×2 (20:17→21:11)
[2021-04-04] MEDS ORDERED: guaiFENesin/CODEINE 10 ML UNIT-DOSE CUPS PO ONE (20:28)
[2021-04-04] MEDS ORDERED: ALBUTEROL SO4 HFA INHALER IH ONE ×2 (20:50→21:12)
[2021-04-04] MEDS ORDERED: guaiFENesin/CODEINE 5 ML UNIT-DOSE CUPS PO ONE (21:12)
[2021-04-04 22:22] VITALS: BP 119/78; PULSE 87; TEMP 99
== END 2021-04-04 22:59 | disposition home or self-care (01) ==
LOC: JER 17:52
DX: R05.1 Acute cough (principal); R50.9 Fever, unspecified
CPT/HCPCS: 71046-TC-FY; 87651; 87804; 99284-25; C9803; U0003; U0005

== ENCOUNTER 2021-04-21 11:27 | Emergency (ER) | payer OTHER ==
[2021-04-21 11:46] VITALS: BP 103/68; PULSE 82; TEMP 98; BMI 23.8
[2021-04-21] MEDS ORDERED: METHOCARBAMOL 500 MG TABLET PO ONE (12:05)
[2021-04-21] MEDS ORDERED: KETOROLAC TROMETHAMINE 30 MG/1 ML VIAL IM ONE (12:05)
[2021-04-21] MEDS ORDERED: METHOCARBAMOL 500 MG TABLET ONE (12:11)
[2021-04-21] MEDS ORDERED: KETOROLAC TROMETHAMINE 30 MG/1 ML VIAL ONE (12:11)
== END 2021-04-21 13:15 | disposition home or self-care (01) ==
LOC: JERFT 11:27 → JER 11:27 → JERFT 13:15
PROC: 3E0233Z Introduction of Anti-inflammatory into Muscle, Percutaneous Approach (ICD-10-PCS; principal; 2021-04-21)
DX: M62.830 Muscle spasm of back (principal)
CPT/HCPCS: 99284-25